=== PATIENT | female | born 1960 | race Asian ===

== ENCOUNTER → 2021-03-23 | Emergency (ER) | payer SELFPAY ==
--- NOTE | 2021-03-23 12:34 | NUR ---
Pt refused to be triaged. Pt eloped from the facility
== END | disposition left against medical advice (07) ==
LOC: ER 12:29
DX: Z53.21 Procedure and treatment not carried out due to patient leaving prior to being seen by health care provider (principal)

== ENCOUNTER → 2021-03-23 | Emergency (ER) | payer BC ==
--- NOTE | 2021-03-23 13:35 | NUR ---
pt refused to be triaged. Arguing with
== END | disposition left against medical advice (07) ==
LOC: ER 13:33
DX: Z53.21 Procedure and treatment not carried out due to patient leaving prior to being seen by health care provider (principal)